=== PATIENT | male | born 1965 | race Caucasian/White ===

== ENCOUNTER 2025-03-09 17:05 | Emergency (ER) | payer OTHER, SELFPAY ==
--- OUTSIDE RECORDS SUMMARY | 2024-09-04 12:30 | XMS_ITS | Encounter Summary ---
Author Organization [facility] Address [address], [place] [address] Care Team Providers Care Unit Director Name Role Phone Found, No Pcp MD Primary Care Provider Unavailab le Reason for Visit * ReasonCommentsShoulder Problem * Therapies (Routine) - New RequestSpecialtyDiagnoses / ProceduresReferred By ContactReferred To Contact Diagnoses Tendinopathy of left rotator cuff Osteoarthritis of left AC (acromioclavicular) joint Superior labrum vziewsee-zo-daxpiniri (SLAP) tear of left shoulder Chronic left shoulder pain Velia Dubose, DO [address] [place] [address] Phone: tel: fax: Referral IDStatusReasonStart DateExpiration DateVisits RequestedVisits [id number] [id number] Encounter Details DateTypeDepartmentCare Team (Latest Contact Info)Otclhdozesf04/22/2025 1:30 PM CDTOffice Visit [facility] at [address] [address] [place] [address] [place] [address] Left shoulder pain, unspecified chronicity (Primary Dx); Tendinopathy of left rotator cuff Social History Tobacco UseTypesPacks/DayYears UsedDateSmoking Tobacco: NeverSmokeless Tobacco: NeverAlcohol UseStandard Drinks/WeekCommentsYes0 (1 standard drink = 0.6 oz pure alcohol)PHQ-2AnswerDate RecordedPHQ-2 Openv420Sex and Gender Information ValueDate RecordedSex Assigned at BirthNot on fileLegal EcbLeow8606/30/2014 1:11 PM CDTGender IdentityNot on fileSexual OrientationNot on filedocumented as of this encounter Progress Notes * Bessie Cruz, PT - 09/04/2024 1:30 PM CDT [facility] Physical Therapy - Shoulder Evaluation/Plan of Care Initial Certification Period: 09/04/2024 to 12/03/24 Referring Provider: Velia Dubose Visit Diagnosis: 1. Left shoulder pain, unspecified chronicity 2. Tendinopathy of left rotator cuff Precautions: None reported Orders: Evaluate & treat Onset/Referral Date: Same day [facility] Tendinopathy of left rotator cuff Osteoarthritis of left AC (acromioclavicular) joint Superior labrum ioluxopn-iq-ujewaqhst (SLAP) tear of left shoulder Chronic left shoulder pain MRI 10/18/23 IMPRESSION: 1. Full-thickness tear of the long head of the biceps tendon. 2. Mild supraspinatus and infraspinatus tendinosis, each demonstrating low-grade interstitial tearing and bursal surface fraying. 3. Mild subscapular tendinosis with low-grade interstitial tearing at its insertion. 4. Mild undulation the glenohumeral joint with a small joint effusion. 5. Moderate to advanced degenerative changes at the acromioclavicular joint. 6. SLAP type tear of the superior labrum. SUBJECTIVE Reason for Visit: Mckay Mendieta presents to the [facility] ER with complaints of L shoulder shoulder pain which began 5 days ago when cleaning the gutters (lots of OH, repetitive movement). Painis located in L shoulder and is worse with OH movements or raising his arm out to the side. Per chart review from urgent care note Here for c/o L shoulder pain that started 5 days ago after cleaning out gutters. He's had issues with this shoulder in the past. Imaging in September 2023 showed proximal biceps tear, RC tendinopathy and OA. He has never done PT for his shoulder. Has had shoulder pain for >5-10 years. Aggravated it 5 days ago. Has no pain currently. Work/Leisure/Sport: Works at [employer], yard work Patient Therapy Goals: Resume previous level of activity symptom free. Past Medical History: Past medical history, medication, and allergies were reviewed in the electronic medical record. No past medical history on file. Recently Experienced (Red Flags): Denies fever, chills, night sweats, unrelenting night pain, unexplained weight loss, bowel/bladder changes, saddle sensation changes Previous Treatment: None Benefited from previous treatment: not applicable Pain Details: Current pain intensity level: 0/10 Sleep interruptions: Difficulty getting comfortable in order to sleep. Pain quality: Stabbing/sharp with movements Aggravating factors: Sleep (Left), Lifting, Overhead activities, Household activities, and Yardwork Relieving factors: None, just trying to keep moving Patient History: Low Complexity: No personal factors or comorbidities that impact plan of care OBJECTIVE Observation: forward head, R hand dominant Screening: Cervical: Within normal limits ROM: Left Shoulder AROM Flexion: 180 Abduction: 180, mild pain External rotation: 90 Internal rotation: 65 Right Shoulder AROM Flexion: 180 Abduction: 180 External rotation: 90 Internal rotation: 85 Overhead Sports Shoulder Special Tests: (Franklin: (-) = no reproduction of symptoms; (+) = reproductionof symptoms) Full can + Empty can + Painful arc + Drop arm + pain ER lag test - Infraspinatus - Strength: Left Shoulder Flexion: 4+/5 External rotation: 4/5 Internal rotation: 5/5 Abduction: 4-/5 Right Shoulder Flexion: 5/5 External rotation: 5/5 Internal rotation: 5/5 Abduction: 5/5 Flexibility: Not tested Joint mobility: Not tested Palpation: Tenderness with palpation to: Left: AC joint Functional tests: Hands behind head restricted/painful. Hands behind back within normal limits. Hands on opposite shoulders within normal limits. PT - Musculoskeletal - Shoulder QuickDASH (0-100, 0 being best): 15.9 Clinical Examination: Low complexity: Addressed 1-2 elements from body structures and functions (see above), and/or functional limitations as noted below. Today's Intervention: Physical Therapy Evaluation was completed and the patient was educated on the condition, planned therapy intervention and expectations from treatment. Therapeutic exercise x10 minutes: Therapeutic exercise done to improve ROM, Strength, muscular endurance in order to participate in ADLs and functional goals. Access Code: [email or web address] URL: [email or web address] Date: 09/04/2024 Prepared by: Bessie Cruz Exercises - Shoulder Abduction with Dumbbells - Thumbs Up - 1 x daily - 7 x weekly - 2 sets - 10 reps - Sidelying Shoulder External Rotation - 1 x daily - 7 x weekly - 2 sets - 10 reps - Standing Shoulder Internal Rotation Stretch with Towel - 1 x daily - 7 x weekly - 2 sets - 10 reps - 5s hold Timed Code Treatment Minutes: 10 Total Treatment Minutes: 24 Home Program/[facility]: Access Code: [email or web address] URL: [email or web address] Date: 09/04/2024 Prepared by: Bessie Cruz Exercises - Shoulder Abduction with Dumbbells - Thumbs Up - 1 x daily - 7 x weekly - 2 sets - 10 reps - Sidelying Shoulder External Rotation - 1 x daily - 7 x weekly - 2 sets - 10 reps - Standing Shoulder Internal Rotation Stretch with Towel - 1 x daily - 7 x weekly - 2 sets - 10 reps - 5s hold ASSESSMENT Therapist Impression/Summary: Patient demonstrates loss of IR range of motion, strength impairments, pain, limiting ability to participate in overhead activities, work duties, sleeping without interruptions and yard-work without pain. Patient would benefit from additional physical therapy to address deficits to facilitate return to prior level of function and improve quality of life PT Clinical Presentation: Low Complexity: Stable and Uncomplicated Clinical Decision Making: Low Complexity Recommendations/Equipment: No additional recommendations at this time Significant Impairments: Pain, Muscle weakness, Muscular imbalances Functional Limitations: difficulty sleeping, difficulty dressing, difficulty with household tasks, and difficulty meeting work demands Goals/Functional Outcomes: HEP/Independent Management: Demonstrate independence with HEP and self- management following each treatment session ADL's: Lie or sleep on L side without waking during the night in 6 weeks. Dress, including don and doff shirt and pants with ease in 6 weeks. Reach overhead to put dishes away with ease in 6 weeks. Work: Be able to perform work tasks with ease in 6 weeks. Barriers to Goal Achievement or Learning: none Prognosis: good PLAN Planned Intervention/Education: ADL/Self Management, Canalith repositioning procedure, Dry Needling, Education, Electrical Stimulation, Heat/ice, Iontophoresis with Dexamethasone Sodium Phosphate 4 mg/mL solution prn with procedure to reduce inflammation. Deliver 1.0mL-1.5mL through iontophoresis pa tch to affected area., Isokinetic/Performance Testing, Manual Therapy, Neuromuscular Re-education, TENS application/self treatment, Therapeutic Activities, Therapeutic Exercise Frequency: 1 x week Duration: 90 days Discharge Plan: Patient will be discharge from therapy when goals are achieved or patient plateaus in progress. Informed Consent: Patient and/or family in agreement with the care plan. Plan for Next Treatment: progress strengthening The fender mechanic apprentice is completed by the therapist and the referring clinician's electronic signature certifies medical necessity for the plan above. Cosigned by Velia Dubose DO at 09/04/2024 1:56 PM CDT * Bessie Cruz PT - 09/04/2024 1:30 PM CDT Physical Therapy Discharge Summary Mckay Mendieta has not attended therapy since last documented visit. There are no further visitsscheduled at this time and Mckay is currently considered discharged from therapy. Unable to assess current level of function and goals due to unplanned discharge. Please see previous visit documentation of status at last treatment. Bessie Cruz PT OLOGY TECHNICIAN documented in this encounter Plan of Treatment NameTypePriorityAssociated DiagnosesOrder SchedulePhysical TherapyReferral Routine Tendinopathy of left rotator cuff Osteoarthritis of left AC (acromioclavicular) joint Superior labrum ipcmexjm-ph-farrnacgs (SLAP) tear of left shoulder Chronic left shoulder pain Ordered: 09/04/2024documented as of this encounter Visit Diagnoses Diagnosis Left shoulder pain, unspecified chronicity- Primary Tendinopathy of left rotator cuff documented in this encounter Care Teams Team MemberRelationshipSpecialtyStart DateEnd Date Found, No Pcp, [address] [place] [address] PCP - General1/24/19documented as of this encounter
--- NOTE | 2025-03-09 17:07 | ED_ITS ---
HPI - General Adult General Time Seen by Provider: 17:07 Date Seen: 03/09/25 Chief complaint: Dental/Oral/Mouth Injury/Pain Stated complaint: R face swelling Time Seen by Provider: 03/09/25 17:06 Source: patient Mode of arrival: ambulatory Limitations: no limitations History of Present Illness HPI narrative: 59-year-old male who comes in today with right facial swelling. The patient noted right facial swelling today, no pain, no injury. No fever chills. Related Data Home Medications ?Medication ?Instructions ?Recorded ?Confirmed No Known Home Medications 01/07/23 1208/07 Allergies Allergy/AdvReac Type Severity Reaction Status Date / Time No Known Drug Allergies Allergy Verified 03/09/25 17:19 [facility] Medical History (Updated 03/09/25 @ 17:31 by Beto Marmolejo MD) Low back pain ?M54.50 - Low back pain, unspecified (ICD-10) Surgical History (Updated 01/01/23 @ 13:31 by Nicolás Ozuna) History of wisdom tooth extraction ?K08.409 - Partial loss of teeth, unspecified cause, unspecified class (ICD- 10) History of total left hip replacement ?Z96.642 - Presence of left artificial hip joint (ICD-10) History of colonoscopy ?Z98.890 - Other specified postprocedural states (ICD-10) History of appendectomy ?Z90.49 - Acquired absence of other specified parts of digestive tract (ICD- 10) Family History (Updated 01/01/23 @ 13:31 by Nicolás Ozuna) Father Diabetes Social History (Updated 01/01/23 @ 13:31 by Nicolás Ozuna) Narrative: nonsmoker Smoking Status: Never smoker Exam Narrative: Exam Narrative: General: well nourished , NAD Head: Atraumatic and normocephalic ENT: External ears and external nose are normal. Right parotid swelling Eyes: Conjunctiva clear, pupils are equal reactive, external ocular motions are intact Neck: Full spontaneous range of motion of the neck Lungs: No respiratory distress Musculoskeletal: No tenderness or deformity Neurologic: No gross focal neurologic deficits Skin: No rashes Psych: Mood and affect are appropriate Const: Vital Signs, click to edit/add: Vital Signs - 24 hr 03/09/25 17:09 Temperature 97.5 F L Pulse Rate [Pulse Oximeter] 82 Respiratory Rate 16 Blood Pressure [Ri ght Upper Arm] 177/94 H Pulse Oximetry 95 Oxygen Delivery Me thod Room Air Course Course ED Course: Additional records reviewed: Prior orthopedics visit from August 2024 which was for tendinopathy of the left rotator cuff and SLAP lesion, treated conservatively with physical therapy Additional history from: Spouse Care impacted by: Tobacco use, gout Testing considered but not performed: See ED course Disposition: Home Patient with right facial swelling noted tonight. No pain, no fever. No dental pain. On exam here he has swelling of the right parotid gland is nontender. Suspect parotid stone, discussed techniques to assist with passage. Follow-up with ENT in a week if still having swelling. Will be started on antibiotics prophylactically. Vital Signs Vital signs: Initial Vital Signs Temperature 97.5 F L 03/09/25 17:09 Temperature Source Temporal Artery Scan 03/09/25 17:09 Pulse Rate 82 03/09/25 17:09 Pulse Rhythm Regular 03/09/25 17:09 Respiratory Rate 16 03/09/25 17:09 Blood Pressure 177/94 H 03/09/25 17:09 Blood Pressure Mean 121 H 03/09/25 17:09 Blood Pressure Position Sitting 03/09/25 17:09 Pulse Oximetry 95 03/09/25 17:09 Oxygen Delivery Method Room Air 03/09/25 17:09 Vital Signs Temperature 97.5 F L 03/09/25 17:09 Pulse Rate 82 03/09/25 17:09 Respiratory Rate 16 03/09/25 17:09 Blood Pressure 177/94 H 03/09/25 17:09 Pulse Oximetry 95 03/09/25 17:09 Oxygen Delivery Method Room Air 03/09/25 17:09 Temperature 97.5 F L 03/09/25 17:09 Pulse Rate 82 03/09/25 17:09 Respiratory Rate 16 03/09/25 17:09 Blood Pressure 177/94 H 03/09/25 17:09 Pulse Oximetry 95 03/09/25 17:09 Oxygen Delivery Method Room Air 03/09/25 17:09 Discharge Plan Discharge Clinical Impression: Swelling of right parotid gland Patient Disposition: Home, Self-Care Condition: Stable Instructions: Parotid Duct Obstruction (ED) Additional Instructions: Suck on lemon drops or other sour foods to help with passage of stone Follow-up with Dr. O'Pieter, ENT in 1 week Activity Level: Activity as Tolerated Discharge Diet: Regular Prescriptions: No Action No Known Home Medications Follow Up/Referrals: Provider,Not a Local [Primary Care Provider, Family Practice] Stand Alone Forms: [employer] Info Instructions
--- OUTSIDE RECORDS SUMMARY | 2025-03-09 17:07 | XMS_ITS | Clinical Summary ---
Author Organization [facility] Address [facility] [place] [address] Care Team Providers Care Bilingual Social Worker Name Role Phone Osman oRman MD Primary Care Provider [phone] Allergies No known active allergies Medications No known medications Active Problems ProblemNoted DateDiagnosed DateChest pain, non-qnbdikv9910/27/2011 Overview (10/27/2011): September 2011: had CT Angiogram that was negative, see scan. Had left pleural effusion. Thyroid slpvbu5111/17/2008 Overview (11/17/2008): seen on ultrasound 11/16/08. Swmvjclhsxpsozr82/04/2009 Overview (11/17/2008): November 2008. neck. Obesity, wxgvyfelbju12/19/2004 Overview (07/02/2010): June 2010: BMI 38. Routine general medical examination at a health care dtqfxpky06/19/2004Gout, ctlqivtjazw78/14/0143RJJM75/26/7033NUTPLKKAGWIKEW99/15/2000 Immunizations ImmunizationAdministration DatesNext DueTd (Age >=7 Years)01/24/2000Tdap 07/02/2010 Family History Medical HistoryRelationNameCommentsDiabetesFathertoe amputationHeart Disease FatherCoronary StentHeart DiseaseMotherCABG at 58GeneticOtherMom- Coronary Bypass surgery~Dad-Non insulin dependant diabetic, cholesterolRelationNameStatus CommentsFatherAliveMotherAliveOther Social History Tobacco UseTypesPacks/DayYears UsedDateSmoking Tobacco: NeverSmokeless Tobacco: Never Tobacco Cessation:Counseling Given: Not Answered Alcohol UseStandard Drinks/WeekCommentsYes0 (1 standard drink = 0.6 oz pure alcohol)occasionallySex and Gender InformationValueDate RecordedSex Assigned at BirthNot on fileLegal VhmZsce4803/29/2012 5:42 AM CSTGender IdentityNot on file Sexual OrientationNot on file Last Filed Vital Signs Vital SignReadingTime TakenCommentsBlood Debeprkm674/34607 7:22 PM CDT Etxcb844408/30/2022 7:22 PM NQEQeoomnggpzx97.3 ??C (97.3 ??F)08/30/2022 7:22 PM CDTRespiratory Lzpu4794 7:22 PM CDTOxygen Yrjkxaqlgc95%08/30/2022 7:22 PM CDTInhaled Oxygen Concentration--Zdufpm765.7 kg (255 lb)08/30/2022 7:22 PM RYNYbwyws486.3 cm (5' 11)08/30/2022 7:22 PM CDTBody Mass Index35.57008/30/2022 7:22 PM CDT Plan of Treatment Health MaintenanceDue DateLast DoneCommentsDepression screening for age 12+ 1975HIV for age 15-Hepatitis C screening for age 18-79 08/24/1981Colonoscopy through age Pneumococcal series for age 50+ (1 of 1 - PCV)08/24/2013Zoster (shingles) series for age 50+ (1 of 2)08/24/2013 Lipids for age 45-7508//, 07/02/2010, 10/02/2003, Additional history existsTetanus wniuknl36/19/, 01/24/2000BMI (ht and wt on same day) for age 18+/OVID-19 vaccine series ( season), 11/18/2020Influenza Vaccine (#1)2024RSV vaccine for adults or (1 - 1-dose 75+ series)08/24/2038Hepatitis B series for 19+Aged OutNo longer eligible based on patient's age to complete this topic Procedures Procedure NamePriorityDate/TimeAssociated DiagnosisCommentsLIPID PANEL W REFLEX MEASURED RLIMlwjupg66/14/2012 8:27 AM CDT HYPERLIPIDEMIA from Last 3 Months or Most Recently Relevant to Health Maintenance Results * (ABNORMAL) LIPID PANEL W REFLEX MEASURED LDL (10/28/2011 8:27 AM CDT)Component ValueRef RangeTest MethodAnalysis TimePerformed AtPathologist Signature CHOLESTEROL,QGMBI945095 - 199 mg/dLCHILDREN'S MINNESOTATRIGLYCERIDES 131<150 mg/dLCHILDREN'S MINNESOTAHDL VBUPSPUGOHZ24>40 mg/dLCHILDREN'S MINNESOTACHOL/HDL RATIO4.69(H)<4.50CHILDREN'S MINNESOTALDL GFILFFEQCVC838<131 mg/dLCHILDREN'S MINNESOTAPATIENT STATUSFasting MELROSE AREA HOSPITALpecimen (Source)Anatomical Location / Laterality Collection Method / VolumeCollection TimeReceived TimeBlood specimen (specimen)BLOOD SPECIMEN / Dnvviqw5410/28/2011 8:27 AM CDT10/28/2011 8:21 AM CDT Narrative Authorizing ProviderResult TypeResult StatusSaul True Roman MDCHEMISTRYFinal ResultPerforming OrganizationAddressCity/State/ZIP CodePhone Number [facility] INTERNAL ZIP [address] [place] [phone] from Last 3 Months or Most Recently Relevant to Health Maintenance Insurance * Guarantor: Jennifer Mendieta AAccomahsa TypeRelation to PatientDate of PhoneBilling AddressPersonal/DjybxcAkgpvw33/03/1972 [place] [address] Care Teams Team MemberRelationshipSpecialtyStart DateEnd Date Osman Roman MD PCP - Vgbctqd52/5/08
--- OUTSIDE RECORDS SUMMARY | 2025-03-09 17:07 | XMS_ITS | Clinical Summary ---
Author Organization [facility] Address [address], [place] [address] Care Team Providers Care Dredge Pipeman Name Role Phone Found, No Pcp MD Primary Care Provider Unavailab le Source Comments You are receiving this document as you are listed as the primary care provider,follow-up provider, or the patient has been referred to you for consultation.This is in compliance with the Medicare andAdena Fayette Medical Centercaid EHR Incentive Program,which states Providers who transition their patient to another setting of careor provider of care or refers their patient to another provider of care shouldprovide summary care record for each transition of care or referral. [facility] Allergies No known active allergies Medications MedicationSigDispense QuantityRefillsLast FilledStart DateEnd DateStatus acetaminophen (TYLENOL) 500 MG tablet Take 1 Tablet by mouth every 4 hours as needed for Pain (Mild Pain). Maximum acetaminophen dose is 4000 mg in 24 hours 100 Tablet 11012/02/2019Active ibuprofen (MOTRIN) 200 MG tablet Take 2 Tablets by mouth every 6 hours as needed for Pain (Mild Pain). This may be safely mixed withthe prescription pain medications (oxycodone, hydrocodone or tramadol.)?? This may also be safely mixed with acetaminophen. 100 Tablet 12/02/2019Active Active Problems ProblemNoted DateDiagnosed DateOSA (obstructive sleep apnea)12/01/2019 Family History Medical HistoryRelationNameCommentsDiabetesBirth FatherRelationNameStatus CommentsBirth Father Social History Tobacco UseTypesPacks/DayYears UsedDateSmoking Tobacco: NeverSmokeless Tobacco: NeverAlcohol UseStandard Drinks/WeekCommentsYes0 (1 standard drink = 0.6 oz pure alcohol)PHQ-2AnswerDate RecordedPHQ-2 Wprox480Sex and Gender Information ValueDate RecordedSex Assigned at BirthNot on fileLegal NdbRdfe2806/30/2014 1:11 PM CDTGender IdentityNot on fileSexual OrientationNot on file Last Filed Vital Signs Vital SignReadingTime TakenCommentsBlood Faiwujfz038/7409 5:15 PM CDT Hvgyr9174/18/2020 5:15 PM LXIQbgevozpdbg94.8 ??C (98.3 ??F)09/04/2024 12:32 PM CDTRespiratory Bral206812/02/2019 5:15 PM CDTOxygen Xxbcvxlxdn21%12/02/2019 5:15 PM CDTInhaled Oxygen Concentration--Rpcjbm271.5 kg (237 lb)12/02/2019 1:00 PM FNRBdsydm532.7 cm (5' 8)12/02/2019 1:00 PM CDTBody Mass Index36.04012/02/2019 1:00 PM CDT Plan of Treatment Health MaintenanceDue DateLast DoneCommentsColon Cancer Screening Plan Due 1965Hep C Screening (Preventive Services)1963PSA Screening Vnhvvpfntf46/11/1964HIV Screening (Preventive Services)1979Adult Preventive Visit08/24/19819909Bgofkhknuhd30/11/1999Pneumococcal Vaccine 50+ Yrs (1 of 1 - PCV)08/24/2013Zoster/Shingles Vaccine (1 of 2)08/24/2013DTaP/Tdap/Td Vaccine (2 - Tdap)/COVID-19 Vaccine (3 - season) /, 11/18/2020Influenza Vaccine (#1)/RSV Vaccine (1 - 1-dose 75+ series)08/24/2038HepA VaccineAged OutNo longer eligible based on patient's age to complete this topicHepB VaccineAged OutNo longer eligible based on patient's age to complete this topicHib VaccineAged OutNo longer eligible based on patient's age to complete this topicIPV (Polio) Vaccine Aged OutNo longer eligible based on patient's age to complete this topicMCV4 VaccineAged OutNo longer eligible based on patient's age to complete this topic Meningococcal B VaccineAged OutNo longer eligible based on patient's age to complete this topic Medical Devices ImplantedTypeAreaManufacturerDevice IdentifierShelf Expiration DateModel / Serial / LotImplant Dist Biceps - [id number] Implanted:Qty: 1 on 12/02/2019 by Wai Hayward MD at [facility]: [id number] / 0 / [id number] Insurance * Guarantor: Mckay Kay TypeRelation to PatientDate of BirthPhone Billing AddressPersonal/FjvwxrNbuh58/11/1966 [facility] [place] [address] * Guarantor: Mckay Kay TypeRelation to PatientDate of BirthPhone Billing AddressPersonal/LjocoaUwby27/11/1966 [place] [address] Care Teams Team MemberRelationshipSpecialtyStart DateEnd Date Found, No Pcp, [address] [place] [address] PCP - General04/08/18
[2025-03-09 17:09] VITALS: BP 177/94; PULSE 82; RESP 16; TEMP 36.4; O2SAT 95; BMI 39.3
== END 2025-03-09 17:53 | disposition home or self-care (01) ==
LOC: ED 17:43
PROVIDERS: Emergency Provider Family Medicine
DX: K11.8 Other diseases of salivary glands (principal)
CPT/HCPCS: 99283